=== PATIENT | female | born 1955 | race Caucasian/White ===

== ENCOUNTER 2018-07-01 08:07 | Outpatient (CLI) | payer OTHER ==
--- NOTE | 2018-07-12 09:17 | MMO ---
Bilateral MAMMO Bilat Screen [facility]. CLINICAL HISTORY: Patient is 63 years old and is seen for screening. The patient has the following family history of breast cancer: mother, at age 40, malignant (generic) and sister, at age 65, malignant (generic). The patient has no personal history of cancer. VIEWS: The views performed were: bilateral craniocaudal with tomosynthesis and bilateral mediolateral oblique with tomosynthesis. FILMS COMPARED: The present examination has been compared to prior imaging studies performed at [facility] on 09/24/2008, 03/31/2012, 07/19/2013, 02/26/2015 and 12/03/2016. MAMMOGRAM FINDINGS: The breasts are almost entirely fat. There are no suspicious masses, suspicious calcifications, or new areas of architectural distortion. IMPRESSION: THERE IS NO MAMMOGRAPHIC EVIDENCE OF MALIGNANCY. A ROUTINE FOLLOW-UP MAMMOGRAM IN 1 YEAR IS RECOMMENDED. THE RESULTS OF THIS EXAM WERE SENT TO THE PATIENT. ACR BI-RADS Category 1 - Negative MAMMOGRAPHY NOTE: 1. A negative mammogram report should not delay a biopsy if a dominant of clinically suspicious mass is present. 2. Approximately 10% to 15% of breast cancers are not detected by mammography. 3. Adenosis and dense breasts may obscure an underlying neoplasm.
== END 2018-07-01 08:08 | disposition home or self-care (01) ==
LOC: BICMAMMO 08:07
PROVIDERS: ATTEND Family Medicine
DX: Z12.31 Encounter for screening mammogram for malignant neoplasm of breast (principal); Z80.3 Family history of malignant neoplasm of breast
CPT/HCPCS: 77063; 77067

== ENCOUNTER 2018-12-07 08:28 | Outpatient (CLI) | payer OTHER ==
[2018-12-07 10:18] LABS: Estimated GFR-MDRD - POC Greater than 90
--- NOTE | 2018-12-07 12:39 | CT ---
CT ABDOMEN AND PELVIS WITH IV CONTRAST: 12/07/18 PROVIDED CLINICAL HISTORY: Lower abdominal pain. FINDINGS: The visualized lung bases are free of significant opacity. The solid abdominal organs demonstrate an unremarkable CT appearance. There is no bowel dilatation, inflammatory fat stranding, free fluid or free air apparent. There is abnormal increased density present within the omental fat of the left mid and lower abdomen. There is a 5.8 cm left pelvic mass in the expected location of the left ovary. This could reflect an enlarged ovary or an ovarian mass. There is a lobulated appearance to the uterus presumably reflecti ng fibroid disease. The osseous structures demonstrate no concerning lytic or blastic lesions. Scattered vascular calcifi cations are noted. IMPRESSION: 1. 5.8 cm left adnexal mass. Correlation with pelvic ultrasound recommended. 2. Patchy increased density within the omental fat of the left mid and lower abdomen. Peritoneal metastatic disease is not excluded. Inflammatory changes are felt less likely. POS: [facility]
== END 2018-12-07 08:29 | disposition home or self-care (01) ==
LOC: BICCT 08:28
PROVIDERS: ATTEND Family Medicine
DX: R10.30 Lower abdominal pain, unspecified (principal); N83.8 Other noninflammatory disorders of ovary, fallopian tube and broad ligament; R93.3 Abnormal findings on diagnostic imaging of other parts of digestive tract
CPT/HCPCS: 36415; 74177; 82565; 83036

== ENCOUNTER 2018-12-08 14:36 | Outpatient (CLI) | payer OTHER ==
--- NOTE | 2018-12-08 16:27 | ULT ---
EXAM: PELVIC ULTRASOUND: 12/08/18 HISTORY: Pelvic pain. COMPARISON: None. CORRELATION: Abdomen and pelvic CT 12/07/18. TECHNIQUE: Transabdominal and endovaginal imaging of the pelvis is performed. FINDINGS: Limited evaluation due to body habitus. Suboptimal evaluation of the uterus. Uterus measures at least 4.5 x 8.9 cm on the sagittal endovaginal images. Transverse endovaginal images suggest the diameter to be 5.3 cm. Suboptimal evaluation of the endometrium. There does appear to be uterine leiomyoma, in completely evaluated measuring 5.4 x 5.7 x 7.2 cm. Neither ovary is appreciated. No obvious free fluid in the pelvis. IMPRESSION: Suboptimal evaluation of a uterine leiomyoma. Refer to CT from 12/07/18 for further detail. If there i s still concern and need for better characterization, consider pelvic MRI. POS: [facility]
== END 2018-12-08 14:37 | disposition home or self-care (01) ==
LOC: SCSULT 14:36 → ULT 14:37
PROVIDERS: ATTEND Family Medicine
DX: N83.8 Other noninflammatory disorders of ovary, fallopian tube and broad ligament (principal); D25.9 Leiomyoma of uterus, unspecified
CPT/HCPCS: 76856

== ENCOUNTER 2019-01-11 07:20 | Day surgery (SDC) | payer OTHER ==
[2019-01-10 12:20] VITALS: BMI 45.4
--- NOTE | 2019-01-11 13:40 | OP ---
DATE OF PROCEDURE: 01/11/2019 PROCEDURE PERFORMED: Esophagogastroduodenoscopy with biopsy and colonoscopy with snare polypectomy. PREOPERATIVE DIAGNOSES: Abnormal CT scan of the abdomen and lower abdominal pain and stool DNA based cancer screening positive. DESCRIPTION OF PROCEDURE: Informed consent was obtained from the patient. She was sedated with total intravenous anesthesia. The bite block was placed and the endoscope was advanced easily to the second portion of the duodenum and retroflexion was performed in the stomach. The esophagus had a segment of salmon-colored mucosa suspicious for Serrano esophagus from 32 cm to 35 cm. Biopsies were obtained to confirm the diagnosis and rule out dysplasia. There was a hiatal hernia from 35 to 40 cm. The stomach had a 9 mm cratered ulcer in the antrum. Biopsies were obtained from the ulcer edge in the antrum to rule out H. pylori. This had benign appearance. Retroflexed views in the stomach were unremarkable otherwise. The pylorus and first and second portions of the duodenum were normal. The patient was turned around. Rectal exam was performed and was normal. The colonoscope was advanced to the terminal ileum without difficulty. The mucosa of the terminal ileum was normal. The ileocecal valve and appendiceal orifice were clearly identified. The preparation quality was good. There was a large 1.9 cm flat polyp in the proximal transverse colon. This was raised with saline and removed piecemeal in 3 pieces with snare cautery polypectomy. The edges of the polypectomy site were cauterized with argon plasma coagulation. A tattoo was marked on the distal edge of the polypectomy site. There was a 9 mm flat polyp in the distal transverse colon, which was raised with saline and removed by hot snare. A 5 mm polyp was also removed by hot snare from the distal transverse colon. There was a 1.1 cm flat polyp in the descending colon. This was raised with saline and removed by snare cautery polypectomy. There was immediate bleeding from 2 sites within the polypectomy base, which was controlled with gold probe bipolar cautery at 16 allison. She had a 1.5 cm sessile polyp in the rectum at 15 cm. Again, this was raised with saline and removed by snare cautery polypectomy in one piece. Tattoo was placed next to this polypectomy site. A 7 mm polyp was removed from the rectum by snare cautery polypectomy. Retroflexed views in the rectum were unremarkable. IMPRESSION: 1. 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 2. 5 cm hiatal hernia. 3. 9 mm antral ulcer, biopsied. 4. 1.9 cm flat proximal transverse colon polyp raised with saline and removed in 3 pieces. Polypectomy edges were treated with argon plasma coagulation and tattooed distal to the polypectomy site. 5. 9 mm flat distal transverse polyp and 5 mm flat distal transverse polyp removed by snare cautery polypectomy. 6. 1.1 cm flat descending polyp raised with saline and removed by hot snare. Immediate post polypectomy bleeding was controlled with a Gold probe bipolar cautery at 16 allison. 7. 1.5 cm sessile polyp removed from the rectum at 15 cm. This was raised with saline and removed by snare cautery polypectomy and marked for tattoo. 8. A 7 mm polyp was removed from the distal rectum by snare cautery polypectomy. RECOMMENDATIONS: 1. Await histopathology. 2. Anticipate repeat EGD and colonoscopy in 1 year depending on pathology results. If dysplasia is identified in the segment of Serrano's or if high-grade dysplasia is noted in any of the polyps, then more aggressive surveillance or treatment will be required. 3. Avoid NSAIDs and aspirin. Job ID: [id number]
== END 2019-01-11 13:02 | disposition home or self-care (01) ==
LOC: SDC 07:20
PROVIDERS: ATTEND Internal Medicine Gastroenterology
PROC: 0DBM8ZZ Excision of Descending Colon, Via Natural or Artificial Opening Endoscopic (ICD-10-PCS; principal; 2019-01-11)
PROC: 0DBL8ZZ Excision of Transverse Colon, Via Natural or Artificial Opening Endoscopic (ICD-10-PCS; principal; 2019-01-11)
PROC: 0DB58ZX Excision of Esophagus, Via Natural or Artificial Opening Endoscopic, Diagnostic (ICD-10-PCS; principal; 2019-01-11)
PROC: 0DBP8ZZ Excision of Rectum, Via Natural or Artificial Opening Endoscopic (ICD-10-PCS; principal; 2019-01-11)
PROC: 0DB68ZX Excision of Stomach, Via Natural or Artificial Opening Endoscopic, Diagnostic (ICD-10-PCS; principal; 2019-01-11)
DX: D12.3 Benign neoplasm of transverse colon (principal); D12.4 Benign neoplasm of descending colon; K62.1 Rectal polyp; K22.70 Barrett's esophagus without dysplasia; E11.9 Type 2 diabetes mellitus without complications; E66.01 Morbid (severe) obesity due to excess calories; M19.90 Unspecified osteoarthritis, unspecified site; Z79.84 Long term (current) use of oral hypoglycemic drugs; Z79.899 Other long term (current) drug therapy; Z87.891 Personal history of nicotine dependence; Z68.45 Body mass index [BMI] 70 or greater, adult
CPT/HCPCS: 88305; 88312; 88313

== ENCOUNTER 2020-03-19 09:01 | Outpatient (CLI) | payer OTHER ==
--- NOTE | 2020-03-19 10:23 | BD ---
DEXA BONE DENSITY STUDY: Date: 03/19/2020 HISTORY: Osteoporosis screening. COMPARISON: None. FINDINGS: Lumbar Spine: BMD (g/cm2) L1 0.884 T-Score: -1.0 Z-Score: 0.7 L2 0.830 T-Score: -1.8 Z-Score: 0.1 L3 0.827 T-Score: -2.3 Z-Score: -0.4 L4 0.869 T-Score: -1.7 Z-Score: 0.3 L1-L4 0.852 T-Score: -1.8 Z-Score: 0.1 Left Femoral Neck: 0.772 T-Score: -0.7 Z-Score: 0.9 Total Femur: 0.894 T-Score: -0.4 Z-Score: 0.9 WHO Classification: Osteopenia. 10 YEAR FRACTURE RISK: Major osteoporotic fracture: 13% Hip fracture: 0.8% IMPRESSION: Osteopenia with fracture risk as above. POS: [facility]
== END 2020-03-19 09:02 | disposition home or self-care (01) ==
LOC: BICMAMMO 09:01
PROVIDERS: ATTEND Family Medicine
DX: Z13.820 Encounter for screening for osteoporosis (principal); N95.9 Unspecified menopausal and perimenopausal disorder
CPT/HCPCS: 77080

== ENCOUNTER 2020-09-11 07:58 | Outpatient (CLI) | payer OTHER | END 2020-09-11 07:59 | disposition home or self-care (01) | LOC: BICRAD 07:58 | PROVIDERS: ATTEND Family Medicine | DX: M54.41 Lumbago with sciatica, right side (principal); M47.816 Spondylosis without myelopathy or radiculopathy, lumbar region; Q76.49 Other congenital malformations of spine, not associated with scoliosis; M43.16 Spondylolisthesis, lumbar region | CPT/HCPCS: 72100 ==

== ENCOUNTER 2020-10-10 09:27 | Outpatient (CLI) | payer OTHER | END 2020-10-10 09:28 | disposition home or self-care (01) | LOC: BICMAMMO 09:27 | PROVIDERS: ATTEND Family Medicine | DX: Z12.31 Encounter for screening mammogram for malignant neoplasm of breast (principal); Z85.43 Personal history of malignant neoplasm of ovary; Z80.3 Family history of malignant neoplasm of breast | CPT/HCPCS: 77063; 77067 ==